=== PATIENT | male | born 1955 | race Caucasian/White ===

== ENCOUNTER 2018-01-07 05:30 | Day surgery (SDC) | payer OTHER ==
[~2018-01-07 05:30] MED LIST: AMLODIPINE-BEN1 EAC5 PO; ATIVAN0.5 MG PO; ATIVAN2 M1 PO; ATORVASTATIN CA20 MG PO; BUPROPION XL150 MG PO; OMEPRAZOLE20 MG PO; ZOLPIDEM TARTRA10 MG PO
== END 2018-01-07 11:30 | disposition home or self-care (01) ==
LOC: CIR.AMB 05:30
DX: M67.432 Ganglion, left wrist (principal)